=== PATIENT | female | born 1950 | race Caucasian/White ===

== ENCOUNTER 2019-02-01 07:35 | Outpatient (CLI) | payer MEDICARE ==
--- NOTE | 2019-02-01 09:58 | ULT ---
ABDOMINAL ULTRASOUND: HISTORY: Left upper quadrant abdominal pain. FINDINGS: The limited visualized portions of the pancreas and the visualized portions of the IVC demonstrate a normal sonographic appearance. There is mild atherosclerotic plaque of the abdominal aorta, but the abdominal aorta, where visualize d, is normal in caliber. There is increased echogenicity of the liver relative to the right kidney, suggesting diffuse fatty i nfiltration. No focal hepatic lesion is identified. The right kidney measures 9.6 cm in length. Th e inferior pole, right kidney, is not well assessed due to shadowing from bowel gas. There are multi ple renal calculi seen on the right on prior CT exam from 05/04/2017, which are not well seen on this exam. The left kidney measures 11 cm in length. There is an echogenic focus in the inferior pole, left kidney, measuring 1.2 cm, demonstrating posterior shadowing, suggestive of a renal calculus. The gallbladder has a normal appearance without gallbladder calculi. The common duct measures 0.6 cm in diameter, which is within normal limits. A normal appearing spleen is not visualized. The patient reports a history of a prior splenectomy, b ut there is a rounded, hypoechoic structure in the left upper quadrant, measuring 5.6 cm, likely rela irving to a large splenule. This was also present on CT exam on 05/04/2017, as well as CT abdomen on . IMPRESSION: 1. Diffuse fatty infiltration of the liver. 2. Nonobstructing left renal calculus. 3. The multiple right renal calculi seen on prior CT exam are not well visualized on this examinatio n. 4. No gallbladder calculi are seen, and the common duct is normal in caliber. POS: [facility]
== END 2019-02-01 07:36 | disposition home or self-care (01) ==
LOC: ULT 07:35
PROVIDERS: ATTEND Nurse Practitioner Family
DX: R10.12 Left upper quadrant pain (principal); K76.0 Fatty (change of) liver, not elsewhere classified; N20.0 Calculus of kidney
CPT/HCPCS: 76700

== ENCOUNTER 2020-04-01 04:08 | Inpatient (IN) | payer MEDICARE ==
[2020-04-01] MEDS ORDERED: Propofol 1,000 MG/100 ML VIAL IV ONE (04:11)
[2020-04-01 04:23] LABS: Actual Bicarbonate (HCO3a) 21.4 mEq/L (22-28); Base Excess (BEa) -3.6 mEq/L (-2.0 to +3.0); CO2 Tension 38.9 mmHg (35.0-45.0); Calcium, Ionized (arterial) 1.22 mmol/L (1.12-1.30); Carboxyhemoglobin (COHb) 3.4 gm% (0.0-3.0); Hemoglobin (Hb) 14.3 g/dL (12.0-16.0); O2 Tension (PaO2), arterial 103.2 mmHg (> 70.0); Potassium - ABG Lab 3.19 mmol/L (3.70-5.30); pH, Arterial 7.36 (7.35-7.45)
[2020-04-01 04:34] LABS: ALV-art Gradient 275.975 mmHg (0-20); Puncture Site RRA
--- NOTE | 2020-04-01 04:57 | PDOC.HHP ---
Hospitalist HPI - History of Present Illness Angioedema History of Present Illness: 69-year-old woman with a history of hypertension,, kidney stones and arthritis was transferred from [place] emergency department to the ER in order for her to be admitted. Patient is reported to have developed angioedema and was intubated and put on mechanical ventilation. According to the daughter patient suddenly developed tongue swelling followed by difficulty with swallow and speech. EMS was called, patient was subsequently intubated and sent to the ED. Patient was on sedation with propofol and could not provide any history. She is on lisinopril for hypertension according to the daughter has been taking the lisinopril for quite a long time. She was prescribed Means for her elbow pain. She took a dose of Means before the symptoms occurred. She was given a dose of IV steroid, IV Benadryl, IV Pepcid and epinephrine at [place] ED. Hospitalist ROS - Review of Systems ROS unobtainable: due to endotracheal tube - Medication Medications: Medication Instructions Recorded Confirmed Type Allopurinol 300 mg PO DAILY 04/04/17 04/01/20 History Amlodipine Besylate [amLODIPine 5 mg PO DAILY 04/04/17 04/01/20 History Besylate] Cholecalciferol (Vitamin D3) 1,000 unit PO DAILY 04/04/17 04/07/17 History [Vitamin D] HYDROcodone Bit/APAP 5/325 [Means] 1 tab PO Q6HR PRN 04/04/17 04/01/20 History Hydrochlorothiazide 25 mg PO QAM 04/04/17 04/07/17 History Ondansetron HCl [Zofran] 4 mg PO Q8HR PRN 04/04/17 04/01/20 History Solifenacin Succinate [VESIcare] 5 mg PO DAILY 04/04/17 04/01/20 History Acetaminophen [Tylenol Regular 650 mg PO Q6HR PRN 04/01/20 04/01/20 History Strength] Anastrozole [Arimidex] 1 mg PO DAILY 04/01/20 04/01/20 History Aspirin [Ecotrin] 81 mg PO DAILY 04/01/20 04/01/20 History Chlorthalidone [Hygroton] 12.5 mg PO DAILY 04/01/20 04/01/20 History DULoxetine [Cymbalta] 30 mg PO DAILY 04/01/20 04/01/20 History Famotidine [Pepcid] 20 mg PO DAILY 04/01/20 04/01/20 History Lactobacillus [Floranex] 1 tab PO DAILY 04/01/20 04/01/20 History Rosuvastatin [Crestor] 10 mg PO DAILY 04/01/20 04/01/20 History Solifenacin Succinate 10 mg PO DAILY 04/01/20 04/01/20 History diphenhydrAMINE [Benadryl] 25 mg PO Q8H PRN 04/01/20 04/01/20 History Hospitalist History - Past Medical History Cardiac: reports: HTN, Other Rheumatologic: reports: Other (Arthritis) Renal/: reports: Other (Nephrolithiasis) - Past Surgical History Other Surgical History: Cataract surgery, partial colectomy for diverticulitis, right partial lobectomy for lung cancer, total splenectomy for ruptured spleen, kidney stones removal. - Family History Other Family History: Reviewed and noncontributory. - Exam General - other findings: Intubated and on mechanical ventilation Eye: PERRL, anicteric sclera ENT: normocephalic atraumatic ENT - other findings: ET tube. Neck: supple, no JVD, no thyromegaly Heart: RRR, no murmur, no gallops, no rubs Respiratory: CTAB, no wheezes, no rales, no ronchi Gastrointestinal: soft, non-tender, non-distended, normal bowel sounds Extremities: no cyanosis, no edema Skin: normal turgor, no rashes Neurological - other findings: Sedated. Musculoskeletal - other findings: Sedated Psychiatric - other findings: Sedated Hospitalist Results - Labs Lab results: ABG pH 7.36 (7.35-7.45) 04/01/20 04:15 ABG pCO2 38.9 mmHg (35.0-45.0) 04/01/20 04:15 ABG pO2 103.2 mmHg (> 70.0) H 04/01/20 04:15 Hemoglobin 13.2, WBC 16.3, platelet 251. Sodium 139, potassium 3.1, CO2 21, creatinine 0.85, glucose 144. - Radiology Interpretation Chest x-ray Status: report reviewed by me (No acute disease.) Hospitalist H&P A/P - Problem (1) Angioedema Code(s): T78.3XXA - ANGIONEUROTIC EDEMA, INITIAL ENCOUNTER Status: Acute (2) Hypertension Code(s): I10 - ESSENTIAL (PRIMARY) HYPERTENSION Status: Acute (3) Leukocytosis (leucocytosis) Code(s): D72.829 - ELEVATED WHITE BLOOD CELL COUNT, UNSPECIFIED Status: Resolved (4) Airway obstruction Code(s): J98.8 - OTHER SPECIFIED RESPIRATORY DISORDERS Status: Acute - Plan Plan: Patient intubated for airway obstruction. Patient took Means before onset of her symptoms. Noted she has allergies to other medications. Angioedema most likely secondary to lisinopril but Means could also be implicated. Admit to CCU Keep intubated, continue mechanical ventilation. IV steroid, IV Pepcid. Consult to warp tier. Discontinue lisinopril. Monitor for improvement. Optimize electrolytes. Maintenance IV fluid. Patient is full code but does not want to remain on life support. Medical decision maker is daughter Paz. She has no living will.
[2020-04-01] MEDS ORDERED: Ventilator Sedation Protocol 1 EACH FS SCH (05:00)
[2020-04-01] MEDS ORDERED: Morphine 2 MG/ML VIAL SLOW IVP PRN (05:00)
[2020-04-01] MEDS ORDERED: Fentanyl BOLUS 250 ML IVPB PRN (05:00)
[2020-04-01] MEDS ORDERED: Propofol BOLUS 1,000 MG/100 ML VIAL IV PRN (05:00)
[2020-04-01] MEDS ORDERED: Lorazepam 2 MG/ML VIAL SLOW IVP PRN (05:00)
[2020-04-01] MEDS ORDERED: fentaNYL Citrate/PF 2,000 MCG in Sodium Chloride 0.9% 60 ML IV SCH (05:00)
[2020-04-01] MEDS ORDERED: DISCONTINUE PREVIOUS NARCOTIC PAIN MEDICATIONS AND BENZODIAZEPINES FS SCH (05:00)
[2020-04-01] MEDS: Sodium Chloride 0.9% 1,000 ML IV SCH ×2 (05:26→20:41)
[2020-04-01] MEDS: methylPREDNISolone Sod Succ 40 MG VIAL IVP SCH ×3 (05:28→21:33)
[2020-04-01] MEDS: Potassium Chloride 10 MEQ in Premix Bag 1 BAG IVPB SCH ×4 (05:29→09:27)
[2020-04-01] MEDS ORDERED: Electrolyte Replacement Protoc 1 EACH EACH FS PRN (07:54)
--- NOTE | 2020-04-01 08:18 | CON ---
DATE OF CONSULTATION: 04/01/2020 REASON FOR CONSULTATION: Angioedema, acute respiratory failure requiring mechanical ventilation. HISTORY OF PRESENT ILLNESS: This is a 69-year-old female, who is intubated and cannot give history. What I have is obtained from reviewing the history and physical on the chart. She developed tongue swelling last night. Apparently, she takes lisinopril for hypertension. She was intubated in [place] with 6.5 endotracheal tube and sent here. She is currently sedated and on mechanical ventilation. PAST MEDICAL HISTORY: Hypertension, arthritis, and nephrolithiasis. PAST SURGICAL HISTORY: 1. Cataract surgery. 2. Partial colectomy for diverticulitis. 3. Partial lobectomy for lung cancer. 4. Splenectomy for ruptured spleen. 5. Kidney stone removal. FAMILY MEDICAL HISTORY: Unremarkable. MEDICATIONS: Prior to admission, 1. Allopurinol. 2. Amlodipine. 3. Cholecalciferol. 4. Hydrocodone/APAP. 5. Hydrochlorothiazide. 6. Ondansetron. 7. VESIcare. 8. Tylenol. 9. Arimidex. 10. Ecotrin. 11. Hygroton. 12. Cymbalta. 13. Pepcid. 14. Floranex. 15. Crestor. 16. Benadryl. 17. Lisinopril. REVIEW OF SYSTEMS: Cannot be obtained as the patient is currently on mechanical ventilation. ALLERGIES: CEFDINIR, SULFA, NITROFURANTOIN, TRAMADOL, AND NOW LISINOPRIL. PHYSICAL EXAMINATION: VITAL SIGNS: Temperature 97.3, pulse 77, blood pressure 134/60, and O2 saturation 100%. GENERAL: The patient is sedated on mechanical ventilation. HEENT: Pupils reactive. Sclerae anicteric. Oropharynx, enlarged tongue. Cannot see posterior pharynx. She is intubated with 6.5 endotracheal tube. NECK: No adenopathy or JVD. LUNGS: Clear anteriorly. CARDIOVASCULAR: S1 and S2. Regular. ABDOMEN: Soft and nontender to palpation. EXTREMITIES: No clubbing, cyanosis, or edema. LABORATORY DATA: ABG; pH 7.36, pCO2 of 38, PO2 of 103 on SIMV rate 14, tidal volume 400, PEEP 5, pressure support 10, FiO2 of 60%. White blood cell count 16.3, hematocrit 41.9, and platelet count 251. Sodium 143, potassium 3.2, chloride 105, CO2 of 21, BUN 13, creatinine 0.8, and glucose 144. Chest x-ray shows no mass, effusion, or infiltrate. She is intubated properly. ASSESSMENT: 1. Angioedema secondary to DANA inhibitor use. 2. Acute respiratory failure secondary to airway obstruction. PLAN: Patient will be kept intubated at least overnight. Steroids, Pepcid, etc. usually do not do anything to help improve this situation. Fresh frozen plasma has been shown to help. We will continue supportive care. Job ID: [id number]
--- NOTE | 2020-04-01 08:54 | RAD ---
PORTABLE CHEST: HISTORY: Angioedema. COMPARISON: Earlier examination of the same day. FINDINGS: Endotracheal and NG Tubes appear in satisfactory position. Heart size appears slightly enlarged. Ch ronic-appearing lung changes are seen. Surgical clips over the right infrahilar region again noted. IMPRESSION: Essentially stable exam. POS: [facility]
[2020-04-01] MEDS: Famotidine/PF 20 mg/2ml Vial SLOW IVP SCH ×2 (09:27→20:41)
[2020-04-01] MEDS ORDERED: Enoxaparin Sodium 40 MG/0.4 ML SYRINGE SC SCH (11:00)
[2020-04-01 11:11] LABS: SARS-CoV-2 MS2 Positive; SARS-CoV-2 N Gene Negative; SARS-CoV-2 S Gene Negative; SARS-CoV-2 by NAA Not Detected (NotDetected); SARS-CoV-2 orf1ab Negative
--- NOTE | 2020-04-01 11:58 | PDOC.HOSPP ---
- Subjective Encounter Date: 04/01/20 Encounter Time: 11:56 Subjective: intubated, alert - Objective Vital Signs & Weight: Vital Signs (12 hours) Temp Pulse Resp BP Pulse Ox 04/01/20 10:39 68 130/61 04/01/20 10:00 14 04/01/20 08:00 98.0 F 22 H 100 04/01/20 07:40 107 H 149/71 H 04/01/20 06:35 100 04/01/20 06:00 18 04/01/20 04:52 104 H 195/93 H Weight Weight 156 lb 11.979 oz Most Recent Monitor Data Heart Rate from ECG 75 NIBP 135/72 NIBP BP-Mean 93 Respiration from ECG 23 SpO2 97 I&O: 03/31/20 04/01/20 04/02/20 06:59 06:59 06:59 Intake Total 62.4 400 Output Total 555 Balance 62.4 -155 Additional Labs: Accuchecks 04/01/20 06:10 POC Glucose 162 H Hospitalist ROS - Medication Medications: Active Medications Generic Name Dose Route Start Last Admin Trade Name Freq PRN Reason Stop Dose Admin Famotidine 20 mg 04/01/20 09:00 04/01/20 09:27 Famotidine/Pf 20 Mg/2ml Vial SLOW IVP 20 mg Q12HR BAIRON Administration Sodium Chloride 1,000 mls @ 70 mls/hr 04/01/20 05:15 04/01/20 05:26 Normal Saline 0.9% IV 04/02/20 05:16 1,000 mls .[id number] BAIRON Administration Methylprednisolone Sodium Succinate 40 mg 04/01/20 06:00 04/01/20 05:28 Methylprednisolone Sod Succ 40 Mg Vial IVP 40 mg Q8HR BAIRON Administration - Exam General Appearance: awake alert Neck: no JVD Heart: RRR, no murmur Respiratory: CTAB Gastrointestinal: soft, normal bowel sounds, no palpable masses Extremities: no edema Hosp A/P (1) Acute respiratory failure with hypoxia Code(s): J96.01 - ACUTE RESPIRATORY FAILURE WITH HYPOXIA Status: Acute (2) Airway obstruction Code(s): J98.8 - OTHER SPECIFIED RESPIRATORY DISORDERS Status: Acute (3) Angioedema Code(s): T78.3XXA - ANGIONEUROTIC EDEMA, INITIAL ENCOUNTER Status: Acute Qualifiers: Encounter type: initial encounter Qualified Code(s): T78.3XXA - Angioneurotic edema, initial encounter (4) Hypertension Code(s): I10 - ESSENTIAL (PRIMARY) HYPERTENSION Status: Chronic Qualifiers: Hypertension type: essential hypertension Qualified Code(s): I10 - Essential (primary) hypertension - Plan 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
[2020-04-01] MEDS: Propofol 1,000 MG/100 ML VIAL IV PRN ×2 (17:48→20:41)
[2020-04-02 04:09] LABS: Band 8 % (5-11); Hemoglobin 12.1 g/dL (12.0-16.0); Lymphocytes 4 % (21-51); MDiff Complete? YES; Mean Corpuscular HGB CONC 32.8 g/dL (32.0-36.0); Mean Corpuscular Hemoglobin 32.2 pg (27.0-31.0); Mean Corpuscular Volume 98.2 fL (78.0-98.0); Monocytes 2 % (0-10); Neutrophil 86 % (42-75); Platelet Count 235 thou/uL (130-400); Platelet Morphology Comment Appears Adequate; RBC Distribution Width 13.1 % (11.5-14.5); Red Blood Cell (RBC) Count 3.76 mill/uL (4.20-5.40); White Blood Cell (WBC) Count 19.6 thou/uL (4.8-10.8)
[2020-04-02 04:22] LABS: Anion Gap 12 mmol/L (10-20); BUN (Urea Nitrogen) 22 mg/dL (9.8-20.1); Calc. Creatinine Clearance 79 mL/min (70-130); Calcium 9.1 mg/dL (7.8-10.44); Carbon Dioxide 23 mmol/L (23-31); Chloride 106 mmol/L (98-107); Estimated GFR-MDRD 78; Glucose 145 mg/dL (80-115); Potassium 4.1 mmol/L (3.5-5.1); Sodium 137 mmol/L (136-145)
[2020-04-02] MEDS: methylPREDNISolone Sod Succ 40 MG VIAL IVP SCH (05:06)
[2020-04-02] MEDS ORDERED: DC Sedation Protocol FS ONE (07:34)
--- NOTE | 2020-04-02 07:54 | PRG ---
DATE OF SERVICE: 04/02/2020 35 minutes critical time. SUBJECTIVE: The patient remains intubated on mechanical ventilation. She is able to follow commands without difficulty. Overall looks better. OBJECTIVE: VITAL SIGNS: Temperature 98.9, pulse 67, blood pressure 151/70, O2 saturation 100%. Total intake 3427, output 1438. HEENT: Tongue size is greatly reduced. She does have an air leak when cuff deflated. NECK: No JVD. CHEST: Clear. CARDIAC: S1, S2. Regular. ABDOMEN: Soft. EXTREMITIES: No edema. LABORATORY DATA: Sodium 137, potassium 4.1, chloride 106, CO2 of 23, BUN 22, creatinine 0.7, glucose 145. White blood cell count 19.6, hematocrit 36.9, and platelet count 235. X-ray shows no mass, effusion, there may be a subtle infiltrate on the left. ASSESSMENT: Angioedema. PLAN: Since she does have an air leak, we will go ahead and extubate her. Tongue size seems near appropriate. If she is doing well, by mid afternoon, she can be transferred out to the floor. Job ID: [id number]
--- NOTE | 2020-04-02 08:35 | RAD ---
PORTABLE CHEST: HISTORY: Pneumonia. COMPARISON: 04/01/2020 study. FINDINGS: Heart size is borderline. Endotracheal and NG tubes remain in satisfactory position. Parahilar lung markings appear slightly more prominent than on the prior exam, probably largely technique related. Retrocardiac region is difficult to assess. Overall appearance is felt to be essentially stable as compared to the prior study. IMPRESSION: Stable exam. POS: [facility]
[2020-04-02] MEDS: Famotidine/PF 20 mg/2ml Vial SLOW IVP SCH (08:39)
[2020-04-02] MEDS: Enoxaparin Sodium 40 MG/0.4 ML SYRINGE SC SCH (08:39)
--- NOTE | 2020-04-02 09:24 | PDOC.HOSPP ---
- Subjective Encounter Date: 04/02/20 Encounter Time: 09:19 Subjective: post extubation, alert, no distress - Objective Vital Signs & Weight: Vital Signs (12 hours) Temp Pulse Resp BP Pulse Ox 04/02/20 08:00 98.4 F 04/02/20 07:56 99 04/02/20 07:34 98 04/02/20 07:33 85 151/70 H 04/02/20 05:53 15 04/02/20 04:00 98.9 F 15 04/02/20 01:59 16 04/02/20 00:00 98.8 F 14 04/01/20 22:00 14 Weight Admit Weight 156 lb Weight 164 lb 7.437 oz Most Recent Monitor Data Heart Rate from ECG 78 NIBP 156/78 NIBP BP-Mean 104 Respiration from ECG 15 SpO2 98 I&O: 04/01/20 04/02/20 04/03/20 06:59 06:59 06:59 Intake Total 62.4 3427.4 Output Total 1438 110 Balance 62.4 1989.4 -110 Result Diagrams: 04/02/20 03:22 04/02/20 03:22 Additional Labs: Accuchecks 04/01/20 04/01/20 04/01/20 23:50 18:14 12:12 POC Glucose 135 H 145 H 153 H Hospitalist ROS - Medication Medications: Active Medications Generic Name Dose Route Start Last Admin Trade Name Freq PRN Reason Stop Dose Admin Enoxaparin Sodium 40 mg 04/02/20 09:00 04/02/20 08:39 Enoxaparin Sodium 40 Mg/0.4 Ml Syringe SC 40 mg 0900 BAIRON Administration Famotidine 20 mg 04/01/20 09:00 04/02/20 08:39 Famotidine/Pf 20 Mg/2ml Vial SLOW IVP 20 mg Q12HR BAIRON Administration - Exam General Appearance: awake alert Neck: no JVD Heart: RRR, no murmur Respiratory: CTAB Gastrointestinal: soft, normal bowel sounds Extremities: no edema Hosp A/P (1) Acute respiratory failure with hypoxia Code(s): J96.01 - ACUTE RESPIRATORY FAILURE WITH HYPOXIA Status: Resolved (2) Airway obstruction Code(s): J98.8 - OTHER SPECIFIED RESPIRATORY DISORDERS Status: Acute (3) Angioedema Code(s): T78.3XXA - ANGIONEUROTIC EDEMA, INITIAL ENCOUNTER Status: Resolved Qualifiers: Encounter type: initial encounter Qualified Code(s): T78.3XXA - Angioneurotic edema, initial encounter (4) Hypertension Code(s): I10 - ESSENTIAL (PRIMARY) HYPERTENSION Status: Chronic Qualifiers: Hypertension type: essential hypertension Qualified Code(s): I10 - Essential (primary) hypertension - Plan doing well off vent no DANA reevaluate in mid-afternoon for transfer to floor [facility]
[2020-04-02] MEDS ORDERED: Aspirin 81 mg Enteric Coated Tablet PO SCH (10:30)
[2020-04-02] MEDS ORDERED: Amlodipine 5 MG TAB PO SCH ×2 (10:30→23:45)
[2020-04-02] MEDS ORDERED: DULoxetine 30 MG CAP PO SCH (10:30)
[2020-04-02] MEDS ORDERED: Allopurinol 300 MG TAB PO SCH ×2 (10:30→21:00)
[2020-04-02] MEDS ORDERED: Chlorthalidone 25 MG TAB PO SCH (10:30)
[2020-04-02] MEDS ORDERED: Anastrozole 1 MG TAB PO SCH (10:30)
[2020-04-02] MEDS: Aspirin 81 mg Enteric Coated Tablet PO SCH (10:33)
[2020-04-02] MEDS: DULoxetine 30 MG CAP PO SCH (10:33)
[2020-04-02] MEDS: Amlodipine 5 MG TAB PO SCH (10:34)
[2020-04-02] MEDS: Chlorthalidone 25 MG TAB PO SCH (11:44)
[2020-04-02] MEDS ORDERED: Rosuvastatin 10 MG TAB PO SCH (21:00)
[2020-04-03 07:53] VITALS: BP 153/70; TEMP 96.4
[2020-04-03] MEDS ORDERED: Famotidine 20 MG TAB PO SCH (09:00)
[2020-04-03] MEDS ORDERED: Anastrozole 1 MG TAB PO SCH (09:00)
[2020-04-03] MEDS ORDERED: Rosuvastatin 10 MG TAB PO SCH (09:00)
[2020-04-03] MEDS ORDERED: Allopurinol 300 MG TAB PO SCH (09:00)
--- NOTE | 2020-04-03 09:00 | DIS ---
DATE OF ADMISSION: 04/01/2020 DATE OF DISCHARGE: 04/03/2020 PRIMARY CARE DOCTOR: Dr. Indira Brink. DISPOSITION: Discharged to home. FINAL DIAGNOSES: 1. Angioneurotic edema. 2. Essential hypertension. 3. Acute respiratory failure with hypoxemia requiring mechanical ventilation. 4. Dyslipidemia. DISCHARGE MEDICINES: Same as home medicines with the exception that lisinopril has been discontinued. 1. VESIcare 5 mg a day. 2. Crestor 10 mg a day. 3. Arimidex 1 mg a day. 4. Allopurinol 300 mg a day. 5. Pepcid 20 mg a day. 6. Cymbalta 30 mg a day. 7. Chlorthalidone 12.5 mg a day. 8. Aspirin 81 mg a day. 9. Amlodipine 5 mg a day. ALLERGIES: INCLUDE ANGIOEDEMA WITH LISINOPRIL, URTICARIA WITH CEFDINIR, SULFA, NITROFURANTOIN, ALSO ALLERGIC TO TRAMADOL. CODE STATUS: Full. DIET: Heart healthy. PENDING AT TIME OF DISCHARGE: Nothing. HOSPITAL COURSE: The patient was admitted to the hospital through the emergency room after transferred from [facility]. She was intubated and started on mechanical ventilation in [place] after a sudden swelling of the tongue. She was placed in the intensive care unit, given steroids, Pepcid, seen by Dr. Noe Manley, Pulmonology. On 04/02, she was stable. She was extubated. Her tongue was markedly less swollen. Today, she is back to baseline as far as her tongue swelling has gone. Her chest is clear. Heart has regular rate and rhythm. Her blood pressure does have minimal elevation 153/70. I have discussed the situation. She is very comfortable with going home, calling Dr. Brink to be seen about her blood pressure in 2 days. Her admitting laboratory revealed a leukocytosis of 19.6, probably secondary to steroids, hemoglobin 12.1, platelet count 235,000. Her chemistries done on 04/02 revealed BUN of 20, blood sugars in the 100 to 160 range. COVID was negative. As I mentioned before, she is doing very well. No procedures were done except for the extubation. She is alert, cooperative. Cardiorespiratory exam is normal. She will see Dr. Brink in 3 to 5 days for followup of her blood pressure. Job ID: [id number]
[2020-04-03] MEDS: Amlodipine 5 MG TAB PO SCH (09:44)
[2020-04-03] MEDS: DULoxetine 30 MG CAP PO SCH (09:45)
[2020-04-03] MEDS: Chlorthalidone 25 MG TAB PO SCH (09:46)
[2020-04-03] MEDS: Aspirin 81 mg Enteric Coated Tablet PO SCH (09:46)
[2020-04-03] MEDS: Enoxaparin Sodium 40 MG/0.4 ML SYRINGE SC SCH (09:47)
[2020-04-03 12:47] VITALS: BMI 28.4
== END 2020-04-03 13:55 | disposition home or self-care (01) | DRG 915 ==
LOC: ERS 04:08 → CCU 05:11 → ONC 04-02 17:47
PROVIDERS: ADMIT Internal Medicine; ATTEND Internal Medicine
PROC: 5A1935Z Respiratory Ventilation, Less than 24 Consecutive Hours (ICD-10-PCS; principal; 2020-04-01)
DX: T78.3XXA Angioneurotic edema, initial encounter (principal); J96.01 Acute respiratory failure with hypoxia; I10 Essential (primary) hypertension; Z20.828 Contact with and (suspected) exposure to other viral communicable diseases; E78.5 Hyperlipidemia, unspecified; D72.829 Elevated white blood cell count, unspecified; T46.4X5A Adverse effect of angiotensin-converting-enzyme inhibitors, initial encounter; J98.8 Other specified respiratory disorders; M19.90 Unspecified osteoarthritis, unspecified site; Z79.82 Long term (current) use of aspirin; Z90.49 Acquired absence of other specified parts of digestive tract; Z85.118 Personal history of other malignant neoplasm of bronchus and lung; Z90.81 Acquired absence of spleen; Z87.442 Personal history of urinary calculi; Z88.2 Allergy status to sulfonamides; Z88.8 Allergy status to other drugs, medicaments and biological substances
CPT/HCPCS: 36415; 36416; 36430; 51702; 71045; 80048; 82805; 85007; 85027; 86850; 86900; 86901; 87635; 94002; 94003; 96365; J1650; J2270; J2704; J2920; J3480; P9059; S0028; U0003

== ENCOUNTER 2022-09-18 05:43 | Observation (INO) | payer MEDICARE ==
[2022-09-18] MEDS ORDERED: Aspirin Chewable 81 MG TAB ONE (05:55)
[2022-09-18 06:49] LABS: #Basophils 0.1 thou/uL (0.0-0.2); #Eosinphils 0.3 thou/uL (0.0-0.7); #Lymphocytes 2.4 thou/uL (1.20-3.40); #Monocytes 1.4 thou/uL (0.11-0.59); #Neutrophils 8.6 thou/uL (1.40-6.50); %Basophils 0.6 % (0.0-1.0); %Eosinophils 2.1 % (0.0-10.0); %Lymphocytes 18.7 % (21.0-51.0); %Monocytes 10.7 % (0.0-10.0); %Neutrophils 67.8 % (42.0-75.0); Hemoglobin 15.6 g/dL (12.0-16.0); Mean Corpuscular HGB CONC 34.6 g/dL (32.0-36.0); Mean Corpuscular Hemoglobin 33.3 pg (27.0-31.0); Mean Corpuscular Volume 96.2 fl (78.0-98.0); Mean Platelet Volume 7.2 fL (7.4-10.4); Platelet Count 287 10x3/uL (130-400); RBC Distribution Width 13.2 % (11.5-14.5); Red Blood Cell (RBC) Count 4.68 mill/uL (4.20-5.40); White Blood Cell (WBC) Count 12.7 10x3/uL (4.8-10.8)
[2022-09-18 07:10] LABS: ALT (SGPT) 20 U/L (8-55); AST (SGOT) 16 U/L (5-34); Albumin 4.3 g/dL (3.4-4.8); Alkaline Phosphatase 102 U/L (40-110); Anion Gap 10 mmol/L (10-20); BUN (Urea Nitrogen) 20 mg/dL (9.8-20.1); Bilirubin, Total 0.3 mg/dL (0.2-1.2); Calc. Creatinine Clearance 0 mL/min (70-130); Calcium 10.2 mg/dL (7.8-10.44); Carbon Dioxide 27 mmol/L (23-31); Chloride 96 mmol/L (98-107); Estimated GFR 71; Globulin 2.8 g/dL (2.4-3.5); Glucose 155 mg/dL (83-110); Potassium 3.3 mmol/L (3.5-5.1); Protein, Total 7.1 g/dL (5.8-8.1); Sodium 130 mmol/L (136-145)
[2022-09-18 08:00] LABS: Bacteria/HPF 4+ HPF (None Seen); Bilirubin Negative (Negative); Blood, Urine Negative (Negative); Clarity Turbid (Clear); Glucose, Urine (Dipstick) Normal (Negative); Ketone, Urine Negative (Negative); Leukocyte 500 Leu/uL (Negative); Nitrite 2+ (Negative); Protein, Urine (Dipstick) Negative (Neg-Trace); RBC/HPF 0-3 HPF (0-3); Specific Gravity, Urine 1.011 (1.002-1.036); Urobilinogen Normal mg/dL (Less than 2); WBC/HPF 21-50 HPF (0-3); pH, Urine 6.5 (5.0-9.0)
[2022-09-18] MEDS ORDERED: Acetaminophen 325 MG TAB PO PRN (09:13)
[2022-09-18] MEDS ORDERED: Metoclopramide HCl 10 MG/2 ML VIAL IVP PRN (09:27)
[2022-09-18] MEDS ORDERED: Potassium Chloride 20 MEQ TAB PO SCH ×2 (09:30→21:00)
[2022-09-18] MEDS ORDERED: Electrolyte Replacement Protocol FS SCH (09:30)
[2022-09-18] MEDS ORDERED: Piperacillin/Tazobactam 3.375 GM in Sodium Chloride 0.9% 100 ML IVPB SCH (09:45)
[2022-09-18] MEDS ORDERED: Nitroglycerin 2% Ointment 1 INCH/1 GM Packet ONE (09:52)
[2022-09-18 10:43] LABS: Magnesium 2.1 mg/dL (1.6-2.6)
[2022-09-18 10:48] LABS: Troponin I 0.014 ng/mL (< 0.028)
[2022-09-18] MEDS ORDERED: DULoxetine 30 MG CAP PO SCH (11:06)
[2022-09-18] MEDS ORDERED: hydrALAZINE 25 MG TAB PO SCH (11:07)
[2022-09-18] MEDS ORDERED: Nebivolol HCl 5 MG TAB PO SCH (11:07)
[2022-09-18 13:09] LABS: Troponin I Less than 0.010 ng/mL (< 0.028)
[2022-09-18] MEDS: Nitroglycerin 2% Ointment 1 INCH/1 GM Packet TOP SCH ×2 (14:48→23:08)
[2022-09-18] MEDS: Piperacillin/Tazobactam 3.375 GM in Sodium Chloride 0.9% 100 ML IVPB SCH (17:51)
[2022-09-18 18:19] VITALS: BMI 28.3
[2022-09-18 19:46] LABS: Potassium 4.1 mmol/L (3.5-5.1)
[2022-09-18] MEDS ORDERED: Atorvastatin Calcium 40 MG TAB PO SCH (21:00)
[2022-09-18] MEDS: hydrALAZINE 25 MG TAB PO SCH (21:06)
[2022-09-19] MEDS: Piperacillin/Tazobactam 3.375 GM in Sodium Chloride 0.9% 100 ML IVPB SCH ×2 (00:40→09:00)
[2022-09-19 05:27] LABS: #Eosinphils 0.2 thou/uL (0.0-0.7); #Lymphocytes 2.7 thou/uL (1.20-3.40); #Monocytes 1.1 thou/uL (0.11-0.59); #Neutrophils 8.5 thou/uL (1.40-6.50); %Basophils 0.2 % (0.0-1.0); %Eosinophils 1.5 % (0.0-10.0); %Lymphocytes 21.9 % (21.0-51.0); %Monocytes 8.5 % (0.0-10.0); %Neutrophils 67.9 % (42.0-75.0); Hemoglobin 14.3 g/dL (12.0-16.0); Mean Corpuscular HGB CONC 33.8 g/dL (32.0-36.0); Mean Corpuscular Hemoglobin 32.7 pg (27.0-31.0); Mean Corpuscular Volume 96.9 fl (78.0-98.0); Mean Platelet Volume 7.3 fL (7.4-10.4); Platelet Count 279 10x3/uL (130-400); RBC Distribution Width 13.1 % (11.5-14.5); Red Blood Cell (RBC) Count 4.37 mill/uL (4.20-5.40); White Blood Cell (WBC) Count 12.5 10x3/uL (4.8-10.8)
[2022-09-19 05:52] LABS: Anion Gap 10 mmol/L (10-20); BUN (Urea Nitrogen) 15 mg/dL (9.8-20.1); Calc. Creatinine Clearance 73 mL/min (70-130); Calcium 9.2 mg/dL (7.8-10.44); Carbon Dioxide 25 mmol/L (23-31); Chloride 103 mmol/L (98-107); Estimated GFR 77; Glucose 98 mg/dL (83-110); Sodium 134 mmol/L (136-145)
[2022-09-19] MEDS: Nitroglycerin 2% Ointment 1 INCH/1 GM Packet TOP SCH (06:38)
[2022-09-19 08:00] VITALS: TEMP 98.4
[2022-09-19] MEDS: hydrALAZINE 25 MG TAB PO SCH (08:22)
[2022-09-19] MEDS ORDERED: Aspirin Chewable 81 MG TAB PO SCH (09:00)
[2022-09-19] MEDS ORDERED: DULoxetine 30 MG CAP PO SCH (09:00)
[2022-09-19] MEDS ORDERED: Nebivolol HCl 5 MG TAB PO SCH (09:00)
[2022-09-19] MEDS ORDERED: Docusate 100 MG CAP PO SCH (09:00)
[2022-09-19] MEDS ORDERED: Allopurinol 300 MG TAB PO SCH (09:00)
[2022-09-19 11:35] VITALS: BP 175/78
[2022-09-19] MEDS ORDERED: Regadenoson 0.4 MG/5 ML SYRINGE ONE (12:34)
== END 2022-09-19 14:45 | disposition home or self-care (01) ==
LOC: ERS 05:43 → 2SW 07:54
PROVIDERS: ADMIT Internal Medicine; ATTEND Internal Medicine
DX: R07.89 Other chest pain (principal); I10 Essential (primary) hypertension; N39.0 Urinary tract infection, site not specified; M81.0 Age-related osteoporosis without current pathological fracture; R94.31 Abnormal electrocardiogram [ECG] [EKG]; E87.1 Hypo-osmolality and hyponatremia; E87.6 Hypokalemia; F17.210 Nicotine dependence, cigarettes, uncomplicated; E78.00 Pure hypercholesterolemia, unspecified; Z85.118 Personal history of other malignant neoplasm of bronchus and lung; Z85.3 Personal history of malignant neoplasm of breast; Z79.811 Long term (current) use of aromatase inhibitors; Z79.82 Long term (current) use of aspirin; Z79.83 Long term (current) use of bisphosphonates; Z79.899 Other long term (current) drug therapy; Z88.1 Allergy status to other antibiotic agents; Z88.2 Allergy status to sulfonamides; Z88.5 Allergy status to narcotic agent; Z88.8 Allergy status to other drugs, medicaments and biological substances
CPT/HCPCS: 71045; 78452; 80048; 80053; 83735; 83880; 84132; 84484 ×2; 85025 ×2; 87077; 87086; 87186; 93005; 93017; 93306; 94760; 99285; A9500; 36415; 81003; 81015; 96365; 96366; 96376; G0378; J2543; J2785; J3490